=== PATIENT | male | born 1940 | race Caucasian/White ===

== ENCOUNTER → 2016-08-19 12:56 | Emergency (ER) | payer MEDICARE ==
[~2016-08-19 12:56] MED LIST: Amoxicillin/Clavulanate TAB* 875 MG PO ONE; Ibuprofen TAB* 400 MG PO ONE; NS 0.9% 1000 ML* 1,000 ML IV ONE
[2016-08-19 14:43] LABS: Hematocrit 43 % (42-52); Hemoglobin 14.1 g/dl (14.0-18.0); Mean Corpuscular HGB Conc 33 g/dl (31-36); Mean Corpuscular Hemoglobin 30 pg (27-31); Mean Corpuscular Volume 91 fL (80-94); Mean Platelet Volume 10 um3 (7.4-10.4); Red Blood Count 4.73 10^6/ul (4.0-5.4); Red Cell Distribution Width 14 % (10.5-15); White Blood Count 17.7 10^3/ul (3.5-10.8)
[2016-08-19 14:46] LABS: Add Diff/Slide Review? Slide Review Added; Comments Flag Yes
[2016-08-19 14:47] LABS: Urine Bilirubin Negative (Negative); Urine Glucose Negative (Negative); Urine Nitrite Negative (Negative)
[2016-08-19 15:04] LABS: Albumin 4.5 g/dL (3.2-5.2); Calcium 9.8 mg/dL (8.6-10.3); EGFR African American 40.9 (>60); EGFR Non-African American 31.8 (>60); Globulin 3.8 g/dL (2-4); Potassium 4.3 mmol/L (3.5-5.0); Total Bilirubin 0.6 mg/dL (0.2-1.0); Total Protein 8.3 g/dL (6.4-8.9)
--- NOTE | 2016-08-19 17:41 | RAD ---
INDICATION: Lower abdominal pain with worsening today. Worse with food and liquid intake. Previous hernia repair. COMPARISON: September 13, 2014 CT. TECHNIQUE: Multidetector CT images were obtained from the lung bases to the ischial tuberosities. Evaluation of the viscera is limited without IV contrast. Multiplanar reformation. REPORT: Minimal bibasilar dependent atelectasis. Decreased density of the liver consistent with hepatosteatosis with mild subcapsular and gallbladder fossa sparing. No focal hepatic lesions or biliary dilatation. Small stone visualized in the region of the gallbladder neck without additional CT abnormality of the gallbladder. No calcifications along the course of the nondilated common bile duct. Few low suspicion small pancreatic calcifications. Negative for significant pancreatic atrophy, focal pancreatic lesion, or peripancreatic inflammatory change. Unremarkable spleen. Negative for CT abnormality of the upper GI or small bowel. Unremarkable infra cecal appendix. Mild to moderate diverticulosis of the colon primarily involving the sigmoid colon without findings of diverticulitis. Negative for ascites or free air. Negative for significant hernias. Normal adrenal glands. Mildly atrophic kidneys. Negative for RIGHT nephrolithiasis or hydronephrosis. 1.8 cm simple cyst at the anterior midpole of the RIGHT kidney. Multiple well-circumscribed cortical lesions of the LEFT kidney with most consistent with simple cysts however there are 2 relative hyperdense exophytic lesions at the inferior pole. The more posterior one CM lesion demonstrates interval decrease in size compared with the prior exam consistent with benign etiology. The more lateral lesion measures 1.7 cm maximum dimension without change consistent with benign etiology. A few calyceal stones of the LEFT kidney are present including a 0.9 cm stone at the inferior pole calyx with interval increase in size. Negative for LEFT ureteral stone or hydronephrosis. Distended urinary bladder. Coarse calcification at the RIGHT para midline prostate. Symmetric seminal vesicles. Negative for lymphadenopathy. Atherosclerotic calcification of normal diameter abdominal aorta and iliac arteries. Partially decompressed IVC suggesting lower volume state. Unchanged small bone island at the RIGHT femoral head. Unchanged larger bone island at the RIGHT acetabular roof. Negative for suspicious focal osseous lesions. IMPRESSION: 1. Hepatosteatosis. 2. Cholelithiasis without additional CT abnormality of the gallbladder. 3. Mild to moderate colonic diverticulosis without findings of diverticulitis. Normal appendix documented. Negative for ascites, free air, or significant hernias. 4. LEFT nephrolithiasis increased over the prior exam. Negative for obstructive uropathy.
--- NOTE | 2016-08-19 18:55 | ED ---
Abdominal Pain/Male - HPI Summary HPI Summary: Patient presents with 1 day of abdominal pain that has become increasingly worse. He has not had pain like this before and denies known cause. The pain is worst in the LLQ but is mildly generalized. He denies fever, chills, N/V/D, constipation or back pain. No SOB, CP or urinary symptoms. - History of Current Complaint Chief Complaint: EDAbdPain Stated Complaint: ABD PAIN Time Seen by Provider: 08/19/16 17:37 Hx Obtained From: Patient, Family/Outlet Manager Onset/Duration: Gradual Onset Timing: Constant Severity Initially: Mild Severity Currently: Severe Pain Intensity: 8 Location: Discrete At: LLQ Radiates: No Character: Dull Aggravating Factor(s): Food Alleviating Factor(s): Nothing Associated Signs And Symptoms: Positive: Decreased Appetite - Allergies/Home Medications Allergies/Adverse Reactions: Allergies Allergy/AdvReac Type Severity Reaction Status Date / Time Cephalexin [From Keflex] Allergy Mild Rash Verified 10/25/14 13:47 IV contrast Allergy Mild Itching Uncoded 10/25/14 13:50 Home Medications: Home Medications Budesonide/Formote 80/4.5(NF) [Symbicort 80/4.5 (NF)] 1 puff INH BID 08/19/16 [ History Confirmed 08/19/16] PMH/Surg Hx/FS Hx/Imm Hx Endocrine/Hematology History: Denies: Hx Diabetes Cardiovascular History: Reports: Hx Coronary Artery Disease, Hx Hypercholesterolemia, Hx Hypertension Denies: Hx Myocardial Infarction Respiratory History: Denies: Hx Asthma - Surgical History Surgery Procedure, Year, and Place: double [id number]; both knees;back surgery- L5;amputated finger;left elbow; Infectious Disease History: No Infectious Disease History: Denies: Traveled Outside the [place] in Last 30 Days - Family History Known Family History: Positive: None - Social History Occupation: Retired Lives: With Family Alcohol Use: None Substance Use Type: Reports: None Smoking Status (MU): Former Smoker Type: Cigarettes Amount Used/How Often: 3/4 PKG/DAY Have You Smoked in the Last Year: No Review of Systems Negative: Fever, Chills Negative: Chest Pain Negative: Shortness Of Breath Positive: Abdominal Pain. Negative: Vomiting, Diarrhea, Nausea Positive: no symptoms reported All Other Systems Reviewed And Are Negative: Yes Physical Exam Triage Information Reviewed: Yes Vital Signs On Initial Exam: Initial Vitals Temp Pulse Resp BP 98 F 83 17 125/56 08/19/16 13:19 08/19/16 13:19 08/19/16 13:19 08/19/16 13:19 Vital Signs Reviewed: Yes Appearance: Positive: Well-Appearing, No Pain Distress, Well-Nourished Skin: Positive: Warm, Skin Color Reflects Adequate Perfusion, Dry, Soft Head/Face: Positive: Normal Head/Face Inspection Eyes: Positive: EOMI, USHA, Conjunctiva Clear ENT: Positive: Hearing grossly normal Neck: Positive: Supple, Nontender, No Lymphadenopathy Respiratory/Lung Sounds: Positive: Clear to Auscultation, Breath Sounds Present Cardiovascular: Positive: RRR Abdomen Description: Positive: Soft. Negative: Nontender - TTP greatest in LLQ with mild diffuse discomfort, CVA Tenderness (R), CVA Tenderness (L), Distended , Guarding Bowel Sounds: Positive: Present Musculoskeletal: Negative: Edema Left, Edema Right Neurological: Positive: Sensory/Motor Intact, Alert, Oriented to Person Place, Time, NV Bundle Intact Distally Psychiatric: Positive: Affect/Mood Appropriate AVPU Assessment: Alert - [place] Coma Scale Coma Scale Total: 15 Diagnostics - Vital Signs Vital Signs Temp Pulse Resp BP Pulse Ox 08/19/16 18:10 99.7 F 82 16 111/59 97 08/19/16 16:05 81 17 107/54 93 08/19/16 14:40 97.8 F 84 17 120/76 98 08/19/16 14:26 98.1 F 86 16 119/57 98 08/19/16 13:19 98 F 83 17 125/56 - Laboratory Lab Results: Lab Results 08/19/16 08/19/16 08/19/16 Range/Units 14:35 14:35 14:35 WBC 17.7 H (3.5-10.8) 10^3/ul RBC 4.73 (4.0-5.4) 10^6/ul Hgb 14.1 (14.0-18.0) g/dl Hct 43 (42-52) % MCV 91 (80-94) fL MCH 30 (27-31) pg MCHC 33 (31-36) g/dl RDW 14 (10.5-15) % Plt Count 234 (150-450) 10^3/ul MPV 10 (7.4-10.4) um3 Neut % (Auto) 84.6 H (38-83) % Lymph % (Auto) 7.8 L (25-47) % [place] % (Auto) 6.5 (1-9) % Eos % (Auto) 0.4 (0-6) % Baso % (Auto) 0.7 (0-2) % Absolute Neuts (auto) 15.0 H (1.5-7.7) 10^3/ul Absolute Lymphs (auto) 1.4 (1.0-4.8) 10^3/ul Absolute Monos (auto) 1.2 H (0-0.8) 10^3/ul Absolute Eos (auto) 0.1 (0-0.6) 10^3/ul Absolute Basos (auto) 0.1 (0-0.2) 10^3/ul Absolute Nucleated RBC 0.01 10^3/ul Nucleated RBC % 0 Sodium 136 (133-145) mmol/L Potassium 4.3 (3.5-5.0) mmol/L Chloride 108 (101-111) mmol/L Carbon Dioxide 19 L (22-32) mmol/L Anion Gap 9 (2-11) mmol/L BUN 53 H (6-24) mg/dL Creatinine 2.04 H (0.67-1.17) mg/dL Est GFR ( Amer) 40.9 (>60) Est GFR (Non-Af Amer) 31.8 (>60) BUN/Creatinine Ratio 26.0 H (8-20) Glucose 111 H (70-100) mg/dL Calcium 9.8 (8.6-10.3) mg/dL Total Bilirubin 0.60 (0.2-1.0) mg/dL AST 17 (13-39) U/L ALT 26 (7-52) U/L Alkaline Phosphatase 71 (34-104) U/L Total Protein 8.3 (6.4-8.9) g/dL Albumin 4.5 (3.2-5.2) g/dL Globulin 3.8 (2-4) g/dL Albumin/Globulin Ratio 1.2 (1-3) Urine Color Yellow Urine Appearance Cloudy Urine pH 5.0 (5-9) Ur Specific [place] 1.016 (1.010-1.030) Urine Protein Negative (Negative) Urine Ketones Negative (Negative) Urine Blood Negative (Negative) Urine Nitrate Negative (Negative) Urine Bilirubin Negative (Negative) Urine Urobilinogen Negative (Negative) Ur Leukocyte Esterase Negative (Negative) Urine Glucose Negative (Negative) Urine Ascorbic Acid * H (Negative) Result Diagrams: 08/19/16 14:35 08/19/16 14:35 Lab Statement: Any lab studies that have been ordered have been reviewed, and results considered in the medical decision making process. - CT No standard instances CT Interpretation: No Acute Changes CT Interpretation Completed By: Radiologist - diverticulosis Abdominal Pain Fem Course/Dx - Diagnoses Differential Diagnosis/HQI/PQRI: Abdominal Aortic Aneurysm, Appendicitis, Bowel Obstruction, Constipation, Diverticulitis, Hepatitis, Pancreatitis, Renal Colic , Ureteral Stone, Urinary Tract Infection Provider Diagnoses: Diverticulosis Discharge - Discharge Plan Condition: Stable Disposition: HOME Prescriptions: Amoxicillin/Clavulanate TAB* [Augmentin TAB 875*] 875 mg PO BID #13 tab Patient Education Materials: Diverticulosis (ED), Diverticulitis Diet (ED) Referrals: Dwight Ward MD [Primary Care Provider] - Additional Instructions: Please take the antibiotic prescribed until it is completely gone. Use Tylenol or ibuprofen for pain as needed. Drink extra fluids and rest. Follow-up with your primary care provider in two days for re-evaluation. Return to the emergency department if symptoms worsen.
[2016-08-19 19:20] VITALS: BP 122/69
== END | disposition home or self-care (01) ==
LOC: ED 12:56
DX: K57.90 Diverticulosis of intestine, part unspecified, without perforation or abscess without bleeding (principal); K80.20 Calculus of gallbladder without cholecystitis without obstruction; R10.32 Left lower quadrant pain; Z87.891 Personal history of nicotine dependence
CPT/HCPCS: 36415; 74176; 80053; 81003; 85025; 96360; 99283; A9270-GY

== ENCOUNTER 2017-02-22 07:46 | Day surgery (SDC) | payer MEDICARE ==
--- NOTE | 2017-02-09 07:40 | HP ---
CC: Dr. Dwight Miller * ADMITTING HISTORY AND PHYSICAL: DATE OF ADMISSION: 02/22/17 ADMITTING DIAGNOSIS: Left renal calculi. PLANNED PROCEDURE: Left stent insertion and shockwave lithotripsy of left renal calculi. HISTORY OF PRESENT ILLNESS: Matthias Cespedes is a 76-year-old gentleman who recently underwent renal sonography. This revealed a 1.2 cm mid pole left renal calculus in addition to a 1.4 cm left lower pole renal calculus. Plain x- ray was obtained and the calculi are fairly faint, but I could visualize them on the plain x-ray and he is now being brought in for left stent insertion and lithotripsy. PAST MEDICAL HISTORY: Significant for: 1. Diverticulosis. 2. Essential hypertension. 3. Hyperlipidemia. 4. Renal insufficiency. MEDICATIONS ON ADMISSION: 1. Lisinopril/hydrochlorothiazide 20/12.5 one tablet daily. 2. Plavix 75 mg daily. 3. Symbicort 2 puffs inhalation twice a day. 4. Rosuvastatin 10 mg daily. 5. Eyedrops. ALLERGIES AND INTOLERANCES: KEFLEX. SURGICAL HISTORY: 1. Significant for right hernia surgery. 2. Bilateral knee arthroscopy. 3. Right index finger amputation. 4. Back surgery in 1995. 5. Right eye surgery. PHYSICAL EXAMINATION GENERAL: Reveals a pleasant elderly gentleman. VITAL SIGNS: Blood pressure is 138/90, pulse 70 per minute, oxygen saturation 97% on room air. CARDIOVASCULAR EXAM: Regular rate and rhythm. S1, S2. LUNGS: Clear bilaterally. ABDOMEN: Soft with mild left flank tenderness. IMPRESSION: A 76-year-old gentleman with two left renal calculi, which are fairly large and faintly seen on an x-ray. He Is now being brought in for left stent insertion and shockwave lithotripsy of left renal calculi. [id number]/[facility] #: [id number] [facility]
[~2017-02-22 07:46] MED LIST changes: -Amoxicillin/Clavulanate TAB* 875 MG PO ONE; +Buffered Lidocaine 0.9% SYRIN* 5 ML/SYR SYRINGE INTRADERM ONE; +DiMENhydriNATE IV* 50 MG/ML VIAL IV PUSH PRN; +Famotidine IV* 10 MG/ML 2 ML (20 mg) IV ONE; -Ibuprofen TAB* 400 MG PO ONE; +Morphine INJ* 2 MG/ML 1 ML CARPUJECT IV PRN; -NS 0.9% 1000 ML* 1,000 ML IV ONE; +PROCHLORPERAZINE INJ 5 MG/ML 2 ML VIAL IV PRN; +Scopolamine 1.5 mg* PATCH TRANSDERM PRN; +fentaNYL* 50 MCG/ML 2 ML VIAL (100 MCG VIAL) IV PRN; +oxyCODONE/Acetamin 5/325 MG* TAB PO PRN
[2017-02-22] MEDS ORDERED: Buffered Lidocaine 0.9% SYRIN* 5 ML/SYR SYRINGE ONE (08:26)
[2017-02-22] MEDS ORDERED: Levofloxacin 500 MG IVPREMIX(* 500 MG/100 ML BAG IVPB ONE (08:26)
[2017-02-22] MEDS ORDERED: Famotidine IV* 10 MG/ML 2 ML (20 mg) ONE (08:26)
--- NOTE | 2017-02-22 08:35 | RAD ---
INDICATION: Shockwave lithotripsy. COMPARISON: Comparison is made with a prior CT of the abdomen and pelvis from August 19, 2016 and a prior KUB series from February 04, 2017. TECHNIQUE: Frontal supine films of the abdomen were obtained. FINDINGS: The small bowel and colon appear nondistended. There is a faint calcific densities which projects over the lower pole of the left kidney which appears to correlate with the calculi noted on the prior CT study. The largest measures approximately 1.2 cm in size. IMPRESSION: LEFT RENAL CALCULI.
[2017-02-22] MEDS ORDERED: KETAMINE HCL* 50 MG/ML 10 ML VIAL ONE (09:35)
[2017-02-22] MEDS ORDERED: fentaNYL* 50 MCG/ML 2 ML VIAL (100 MCG VIAL) ONE (09:35)
[2017-02-22] MEDS ORDERED: Midazolam* 1 MG/ML 10 ML VIAL (10 MG) ONE (09:35)
[2017-02-22] MEDS ORDERED: Iohexol 180 (CONTRAST) 10 ML SDV IV ONE (10:32)
[2017-02-22] MEDS ORDERED: Furosemide IV* 10 MG/ML 2 ML VIAL (20 MG) ONE (10:56)
[2017-02-22] MEDS ORDERED: Lidocaine 2% PF * 5 ML VIAL ONE (10:58)
[2017-02-22] MEDS ORDERED: Phenylephrine IV* 40 MCG/ML 10 ML SYRINGE ONE (10:59)
[2017-02-22] MEDS ORDERED: Dexamethasone IV* 4 MG/ML 1 ML (4 MG) ONE (10:59)
[2017-02-22] MEDS ORDERED: Propofol* 10 MG/ML 20 ML BTL IV PUSH ONE (10:59)
[2017-02-22] MEDS ORDERED: Ondansetron INJ* 2 MG/ML VIAL ONE (10:59)
[2017-02-22 13:01] VITALS: BP 140/84
[2017-02-22] MEDS ORDERED: oxyCODONE/Acetamin 5/325 MG* TAB ONE (13:39)
--- NOTE | 2017-02-23 04:12 | OP ---
CC: Dr. Dwight Miller * DATE OF OPERATION: 02/22/17 - [facility] DATE OF : 38 SURGEON: Kunal Jennings MD ANESTHESIOLOGIST: Dr. Mcdaniel. ANESTHESIA: General. PRE-OP DIAGNOSIS: Left renal calculi. POST-OP DIAGNOSIS: Left renal calculi. OPERATIVE PROCEDURE: Cystoscopy, left retrograde pyelogram, left stent insertion, shockwave lithotripsy of left renal calculi. INDICATIONS: Matthias Cespedes is a 76-year-old gentleman who was evaluated and noted to have two large calculi on a renal sonogram. He is now being brought in for treatment of the same. COMPLICATIONS: None. POSTOPERATIVE CONDITION: Stable. STENT USED: A 7-Surinamese stent left ureter. DESCRIPTION OF PROCEDURE: After induction of general anesthesia, the patient was placed in dorsal lithotomy position. Sequential compression devices were in place and functioning. Initial cystoscopy revealed a normal-appearing urethra, mildly enlarged prostate and a normal-appearing bladder. A guidewire was introduced into the left ureter. Retrograde pyelogram revealed filling defects consistent with the known location of the calculi. A 7-Surinamese stent was introduced and positioned under fluoroscopy with good proximal and distal positioning obtained. Next, attention was directed to shockwave lithotripsy of the left renal calculi. The calculi were faintly opaque and one was in the mid pole and one was in the lower pole. These were sequentially targeted with shockwave lithotripsy and after the initial 300 shocks, there was a pause in lithotripsy for several minutes in an effort to minimize any potential trauma to the kidney. Lithotripsy was then resumed and a total of 1800 shocks were distributed between the 2 calculi. The patient tolerated the procedure satisfactorily and was transferred back to the recovery area in stable condition. [id number]/[facility] #: [id number] [facility]
[2017-02-25] MEDS ORDERED: Scopolamine PATCH Remove* 1 NOTE MISC PATCH OFF ONE (06:01)
== END 2017-02-22 14:40 | disposition home or self-care (01) ==
LOC: OR 07:46
PROVIDERS: ATTEND Urology
DX: N20.0 Calculus of kidney (principal); N28.9 Disorder of kidney and ureter, unspecified; K57.90 Diverticulosis of intestine, part unspecified, without perforation or abscess without bleeding; I10 Essential (primary) hypertension; E78.5 Hyperlipidemia, unspecified; Z89.021 Acquired absence of right finger(s); Z79.01 Long term (current) use of anticoagulants
CPT/HCPCS: 74000; A9270-GY; C1876; J1100; J1940; J1956; J2250; J2405; J2704; J3010

== ENCOUNTER → 2018-08-29 06:15 | Day surgery (SDC) | payer MEDICARE ==
--- NOTE | 2018-08-25 18:13 | HP ---
CC: Dr. Miller; Dr. Denson; Dr. Kunal Jennings * ADMITTING HISTORY AND PHYSICAL: DATE OF ADMISSION: 08/29/18 ADMITTING DIAGNOSES: 1. Left renal calculus. 2. Left flank pain. PLANNED PROCEDURE: Shockwave lithotripsy, left renal calculus; possible left stent insertion. SURGEON: Dr. Jennings. HISTORY OF PRESENT ILLNESS: Matthias Cespedes is a 78-year-old gentleman with a longstanding history of recurrent renal calculi. He has been having periodic left flank pain and an ultrasound revealed approximately 1.2 cm calculus in the lower pole of the left kidney with interval increase in size. He had undergone lithotripsy about 1-1/2 years ago. PAST MEDICAL HISTORY: Significant for: 1. Sleep apnea. 2. COPD. 3. Hypertension. 4. Peripheral vascular disease. 5. Renal calculi. PAST SURGICAL HISTORY: Significant for back surgery, bilateral knee surgery, bilateral inguinal hernia repair, fem-pop revascularization in January of 2015 , and shockwave lithotripsy. MEDICATIONS ON ADMISSION: 1. Ellipta 62.5/25 mcg inhaler 1 puff every day. 2. Lisinopril/hydrochlorothiazide 20/12.5 one tablet daily. 3. Alphagan eye drops twice a day. 4. Aspirin 81 mg. 5. CPAP nightly. 6. Rosuvastatin 10 mg 3 times a week. ALLERGIES: KEFLEX. FAMILY HISTORY: Negative for stones. SOCIAL HISTORY: Smoking history: He is a former heavy smoker with a 50- to 60 - pack year smoking history, who quit in 2013. REVIEW OF SYSTEMS: He denies any chest pain or shortness of breath currently. PHYSICAL EXAMINATION GENERAL: Reveals a pleasant, elderly gentleman. VITAL SIGNS: Blood pressure is 132/74, pulse 80 per minute and regular, oxygen saturation 95% on room air. LUNGS: Clear bilaterally. CARDIOVASCULAR: Regular rate and rhythm. S1, S2. ABDOMEN: Soft with mild left flank tenderness. IMPRESSION: A 78-year-old gentleman with periodic left flank pain secondary to a left renal calculus with interval increase in size. PLAN: Planned procedure is shockwave lithotripsy of left renal calculus, possible left stent insertion. [id number]/[facility] #: [id number] [facility]
[~2018-08-29 06:15] MED LIST changes: -Buffered Lidocaine 0.9% SYRIN* 5 ML/SYR SYRINGE INTRADERM ONE; +Buffered Lidocaine 1% SYRIN* 1 ML/SYRINGE INTRADERM ONE; +Dexamethasone IV* 4 MG/ML 1 ML (4 MG) IV SLOW PU ONE; +Dexamethasone IV* 4 MG/ML 1 ML (4 MG) ONE; +Famotidine IV* 10 MG/ML 2 ML (20 mg) ONE; +Furosemide IV* 10 MG/ML 2 ML VIAL (20 MG) ONE; +Lactated Ringers 1000 ML Bag* 1,000 ML IV SCH; +Levofloxacin 500 MG IVPREMIX(* 500 MG/100 ML BAG IVPB ONE; +Lidocaine 2% PF * 5 ML VIAL ONE; -Morphine INJ* 2 MG/ML 1 ML CARPUJECT IV PRN; +Naloxone* 0.4 MG/ML 1 ML VIAL IV PRN; +Ondansetron INJ* 2 MG/ML VIAL ONE; -PROCHLORPERAZINE INJ 5 MG/ML 2 ML VIAL IV PRN; +Phenylephrine 40 MCG/ML SYRINGE ONE; +Propofol* 10 MG/ML 20 ML BTL ONE; -Scopolamine 1.5 mg* PATCH TRANSDERM PRN; -oxyCODONE/Acetamin 5/325 MG* TAB PO PRN
--- NOTE | 2018-08-29 11:06 | OP ---
CC: Dr. Dwight Miller; Dr. Denson * DATE OF OPERATION: 08/29/18 - [facility] DATE OF : 38 SURGEON: Kunal Jennings MD ANESTHESIOLOGIST: Dr. Hendrickson. ANESTHESIA: General. PRE-OP DIAGNOSIS: Left renal calculus. POST-OP DIAGNOSIS: Left renal calculus. OPERATIVE PROCEDURE: Shockwave lithotripsy of left renal calculus. COMPLICATIONS: None. POSTOPERATIVE CONDITION: Stable. INDICATIONS: Matthias Cespedes is a 78-year-old gentleman with a history of recurrent renal calculi. He was recently seen and noted to have an approximately 10 to 12 mm calculus in the left kidney. DESCRIPTION OF PROCEDURE: After induction of general anesthesia, the patient was placed on the lithotripsy table in supine position. The calculus, which was in the lower pole of the left kidney was localized using fluoroscopy and shockwave lithotripsy was commenced at a rate of 60 shocks per minute. After the initial 300 shocks, there was a pause in lithotripsy for several minutes in an effort to minimize any potential trauma to the kidney. Lithotripsy was then resumed and periodic imaging revealed adequate localization and fragmentation. A total of 2000 shocks were administered. The patient tolerated the procedure satisfactorily and was transferred back to the recovery area in stable condition. [id number]/[facility] #: [id number] [facility]TDD
[2018-08-29 11:16] VITALS: BP 149/81
== END | disposition home or self-care (01) ==
LOC: OR 06:15
PROVIDERS: ATTEND Urology
DX: N20.0 Calculus of kidney (principal); J44.9 Chronic obstructive pulmonary disease, unspecified; G47.33 Obstructive sleep apnea (adult) (pediatric); I10 Essential (primary) hypertension; I73.9 Peripheral vascular disease, unspecified; Z87.442 Personal history of urinary calculi; Z68.30 Body mass index [BMI] 30.0-30.9, adult; K21.9 Gastro-esophageal reflux disease without esophagitis; Z86.718 Personal history of other venous thrombosis and embolism
CPT/HCPCS: 74018; J1100; J1940; J1956; J2405; J2704

== ENCOUNTER 2022-02-20 21:14 | Inpatient (IN) ==
[2022-02-20 22:02] LABS: ABS Basophils 0.1 10^3/ul (0-0.2); ABS Eosinophils 0.1 10^3/ul (0-0.6); ABS Lymphocytes 1.7 10^3/ul (1.0-4.8); ABS Monocytes 0.9 10^3/ul (0-0.8); ABS Neutrophils 7.6 10^3/ul (1.5-7.7); Eosinophil % 1.3 %; Hematocrit 38 % (42-52); Hemoglobin 12.9 g/dL (14.0-18.0); Mean Corpuscular HGB Conc 34 g/dL (31-36); Mean Corpuscular Hemoglobin 30 pg (27-31); Mean Corpuscular Volume 88 fL (80-94); Mean Platelet Volume 9.7 fL (7.4-10.4); Platelet Count 224 10^3/uL (150-450); Red Blood Count 4.36 10^6 /uL (4.18-5.48); Red Cell Distribution Width 14 % (10-15); White Blood Count 10.4 10^3/uL (3.5-10.8)
[2022-02-20 22:16] LABS: Albumin/Globulin Ratio 1.5 (1-3); Calcium 8.5 mg/dL (8.6-10.3); Globulin 2.7 g/dL (2-4); Potassium 4.3 mmol/L (3.5-5.0); Total Bilirubin 0.3 mg/dL (0.2-1.0); Total Protein 6.7 g/dL (6.4-8.9); eGFR CKD-EPI 33.7 (>60)
[2022-02-20 22:52] LABS: ABS Basophils 0.1 10^3/ul (0-0.2); ABS Eosinophils 0.1 10^3/ul (0-0.6); ABS Lymphocytes 1.6 10^3/ul (1.0-4.8); ABS Monocytes 0.8 10^3/ul (0-0.8); ABS Neutrophils 7.9 10^3/ul (1.5-7.7); Eosinophil % 1.2 %; Hematocrit 37 % (42-52); Hemoglobin 12.6 g/dL (14.0-18.0); Lymphocyte % 15.3 %; Mean Corpuscular HGB Conc 34 g/dL (31-36); Mean Corpuscular Hemoglobin 30 pg (27-31); Mean Corpuscular Volume 87 fL (80-94); Mean Platelet Volume 8.9 fL (7.4-10.4); Platelet Count 225 10^3/uL (150-450); Red Blood Count 4.25 10^6 /uL (4.18-5.48); Red Cell Distribution Width 14 % (10-15); White Blood Count 10.6 10^3/uL (3.5-10.8)
[2022-02-20] MEDS ORDERED: Heparin 5000 UNITS/ML 1 mL VIAL IV SCH (23:00)
[2022-02-21] MEDS: Heparin DRIP 25,000 UNITS BAG 25,000 UNITS/500 ML BAG IV SCH ×2 (00:10→22:41)
[2022-02-21] MEDS: Heparin 5000 UNITS/ML 1 mL VIAL IV SCH ×2 (00:10→06:45)
[2022-02-21] MEDS ORDERED: Albuterol HFA INHALER 8 gm MDI INH PRN (01:20)
[2022-02-21 06:20] LABS: ABS Basophils 0.1 10^3/ul (0-0.2); ABS Eosinophils 0.2 10^3/ul (0-0.6); ABS Lymphocytes 2.1 10^3/ul (1.0-4.8); ABS Monocytes 0.6 10^3/ul (0-0.8); ABS Neutrophils 5.4 10^3/ul (1.5-7.7); Eosinophil % 2.1 %; Hematocrit 37 % (42-52); Hemoglobin 12.8 g/dL (14.0-18.0); Lymphocyte % 25.4 %; Mean Corpuscular HGB Conc 35 g/dL (31-36); Mean Corpuscular Hemoglobin 30 pg (27-31); Mean Corpuscular Volume 87 fL (80-94); Mean Platelet Volume 9.2 fL (7.4-10.4); Platelet Count 212 10^3/uL (150-450); Red Blood Count 4.21 10^6 /uL (4.18-5.48); Red Cell Distribution Width 14 % (10-15); White Blood Count 8.3 10^3/uL (3.5-10.8)
[2022-02-21 06:56] LABS: Magnesium 1.9 mg/dL (1.9-2.7)
[2022-02-21 09:07] LABS: Calcium 8.3 mg/dL (8.6-10.3); Potassium 4.2 mmol/L (3.5-5.0); eGFR CKD-EPI 41.2 (>60)
[2022-02-21 10:56] LABS: High Sensitivity Troponin 1 Hr 865 pg/mL (<20)
[2022-02-21] MEDS: NF: Multivitamins/Mins AREDS2 (NF) CAP PO SCH ×2 (11:03→20:28)
[2022-02-21] MEDS: [UNRECOGNIZED DRUG - OTHER] PO SCH (11:03)
[2022-02-21] MEDS: Tiotropium Brom/Olodaterol MDI INH SCH (11:19)
[2022-02-21] MEDS: Brimonidine P 0.1%(NF) 1 DROP BTL RIGHT EYE SCH ×2 (12:13→20:10)
[2022-02-21 16:18] LABS: Vitamin D Total 25(OH) 22.5 ng/mL (20-50)
[2022-02-21] MEDS: Latanoprost 0.005% 2.5 ml BTL BOTH EYES SCH (20:13)
[2022-02-22 07:00] LABS: ABS Basophils 0.1 10^3/ul (0-0.2); ABS Eosinophils 0.3 10^3/ul (0-0.6); ABS Lymphocytes 2.3 10^3/ul (1.0-4.8); ABS Monocytes 0.8 10^3/ul (0-0.8); ABS Neutrophils 6.2 10^3/ul (1.5-7.7); Eosinophil % 2.7 %; Hematocrit 35 % (42-52); Hemoglobin 12.3 g/dL (14.0-18.0); Mean Corpuscular HGB Conc 35 g/dL (31-36); Mean Corpuscular Hemoglobin 31 pg (27-31); Mean Corpuscular Volume 87 fL (80-94); Mean Platelet Volume 9.9 fL (7.4-10.4); Platelet Count 203 10^3/uL (150-450); Red Blood Count 4.03 10^6 /uL (4.18-5.48); Red Cell Distribution Width 14 % (10-15); White Blood Count 9.6 10^3/uL (3.5-10.8)
[2022-02-22] MEDS: Tiotropium Brom/Olodaterol MDI INH SCH (07:20)
[2022-02-22 07:37] LABS: Calcium 8.2 mg/dL (8.6-10.3); HDL Cholesterol 44.1 mg/dL; Potassium 4.3 mmol/L (3.5-5.0); eGFR CKD-EPI 41.5 (>60)
[2022-02-22] MEDS: Brimonidine P 0.1%(NF) 1 DROP BTL RIGHT EYE SCH ×2 (07:54→20:52)
[2022-02-22] MEDS: [UNRECOGNIZED DRUG - OTHER] PO SCH (07:56)
[2022-02-22] MEDS: NF: Multivitamins/Mins AREDS2 (NF) CAP PO SCH ×2 (07:56→20:53)
[2022-02-22] MEDS: Heparin DRIP 25,000 UNITS BAG 25,000 UNITS/500 ML BAG IV SCH (18:58)
[2022-02-22] MEDS: Latanoprost 0.005% 2.5 ml BTL BOTH EYES SCH (20:52)
[2022-02-22] MEDS ORDERED: Lactated Ringers 1000 ml BAG 1,000 ML IV SCH (22:00)
[2022-02-22] MEDS ORDERED: NS 0.9% 1000 ml BAG 1,000 ML IV SCH (22:00)
[2022-02-23 07:16] LABS: ABS Monocytes 0.1 10^3/ul (0-0.8); ABS Neutrophils 10.7 10^3/ul (1.5-7.7); Hematocrit 38 % (42-52); Hemoglobin 12.8 g/dL (14.0-18.0); Lymphocyte % 8.8 %; Mean Corpuscular HGB Conc 34 g/dL (31-36); Mean Corpuscular Hemoglobin 30 pg (27-31); Mean Corpuscular Volume 87 fL (80-94); Mean Platelet Volume 9.5 fL (7.4-10.4); Platelet Count 234 10^3/uL (150-450); Red Blood Count 4.32 10^6 /uL (4.18-5.48); Red Cell Distribution Width 14 % (10-15); White Blood Count 11.9 10^3/uL (3.5-10.8)
[2022-02-23] MEDS: Tiotropium Brom/Olodaterol MDI INH SCH (07:22)
[2022-02-23] MEDS ORDERED: nitroGLYCERIN DRIP 25,000 MCG/250 ML BTL ONE (07:44)
[2022-02-23] MEDS ORDERED: Heparin 2 UNITS/ML 1000 mls 2,000 ML IV ONE (07:44)
[2022-02-23] MEDS ORDERED: Heparin 1,000 UNIT/ML 10 ml (10,000 UNITS) CATHLAB/DIALYSIS ONE ×2 (07:44→09:13)
[2022-02-23] MEDS ORDERED: Iohexol 350 (CONTRAST) 100 ML PAK IV ONE (07:44)
[2022-02-23] MEDS ORDERED: Midazolam 5 mg/5 ml VIAL 1 mg/ml 5 ml VIAL (5 mg) ONE (07:44)
[2022-02-23] MEDS ORDERED: VERAPAMIL 2.5 MG/ML 2 ML VIAL ** 5 mg/2 ml ONE (07:44)
[2022-02-23] MEDS ORDERED: fentaNYL 100 mcg/2 ml 50 MCG/ML VIAL ONE (07:44)
[2022-02-23] MEDS ORDERED: Lidocaine 1% MPF 5 ML VIAL ONE (07:44)
[2022-02-23] MEDS ORDERED: Iodixanol 320 (CONTRAST) 100 ML SDV ONE ×3 (08:08→09:20)
[2022-02-23] MEDS ORDERED: niCARdipine 0.1MG/ML IVPREMIX 20 MG/200 ML BAG IV ONE (08:41)
[2022-02-23] MEDS ORDERED: Heparin 2 UNITS/ML 1000 mls 1,000 ML IV ONE (08:57)
[2022-02-23] MEDS ORDERED: Ondansetron 4 mg VIAL 2 MG/ML 2 ml VIAL IV PRN (09:37)
[2022-02-23] MEDS: [UNRECOGNIZED DRUG - OTHER] PO SCH (10:53)
[2022-02-23] MEDS: Brimonidine P 0.1%(NF) 1 DROP BTL RIGHT EYE SCH ×3 (11:06→21:53)
[2022-02-23] MEDS: NF: Multivitamins/Mins AREDS2 (NF) CAP PO SCH ×2 (11:06→21:53)
[2022-02-23] MEDS ORDERED: Enoxaparin 40 MG/0.4 ML SYR SUBCUT SCH (13:00)
[2022-02-23] MEDS: Enoxaparin 40 MG/0.4 ML SYR SUBCUT SCH (16:37)
[2022-02-23] MEDS: Latanoprost 0.005% 2.5 ml BTL BOTH EYES SCH (21:53)
[2022-02-24 05:02] LABS: ABS Basophils 0.1 10^3/ul (0-0.2); ABS Lymphocytes 1.9 10^3/ul (1.0-4.8); ABS Monocytes 1.3 10^3/ul (0-0.8); Eosinophil % 0.3 %; Hematocrit 33 % (42-52); Hemoglobin 11.3 g/dL (14.0-18.0); Lymphocyte % 13.5 %; Mean Corpuscular HGB Conc 34 g/dL (31-36); Mean Corpuscular Hemoglobin 30 pg (27-31); Mean Corpuscular Volume 87 fL (80-94); Mean Platelet Volume 9.2 fL (7.4-10.4); Platelet Count 221 10^3/uL (150-450); Red Blood Count 3.81 10^6 /uL (4.18-5.48); Red Cell Distribution Width 14 % (10-15); White Blood Count 14.3 10^3/uL (3.5-10.8)
[2022-02-24 05:27] LABS: Albumin 3.5 g/dL (3.2-5.2); Albumin/Globulin Ratio 1.5 (1-3); Calcium 7.9 mg/dL (8.6-10.3); Globulin 2.3 g/dL (2-4); Potassium 4.2 mmol/L (3.5-5.0); Total Bilirubin 0.4 mg/dL (0.2-1.0); Total Protein 5.8 g/dL (6.4-8.9); eGFR CKD-EPI 36.4 (>60)
[2022-02-24] MEDS: NF: Multivitamins/Mins AREDS2 (NF) CAP PO SCH (08:09)
[2022-02-24] MEDS: [UNRECOGNIZED DRUG - OTHER] PO SCH (08:09)
[2022-02-24] MEDS: Brimonidine P 0.1%(NF) 1 DROP BTL RIGHT EYE SCH ×2 (08:09→20:04)
[2022-02-24] MEDS: Tiotropium Brom/Olodaterol MDI INH SCH (08:10)
[2022-02-24] MEDS: Enoxaparin 40 MG/0.4 ML SYR SUBCUT SCH (16:05)
[2022-02-24] MEDS: Multivitamins/Minerals TAB PO SCH (20:04)
[2022-02-24] MEDS: Latanoprost 0.005% 2.5 ml BTL BOTH EYES SCH (20:04)
[2022-02-25 05:29] LABS: ABS Basophils 0.1 10^3/ul (0-0.2); ABS Eosinophils 0.3 10^3/ul (0-0.6); ABS Lymphocytes 1.8 10^3/ul (1.0-4.8); ABS Neutrophils 6.7 10^3/ul (1.5-7.7); Hematocrit 35 % (42-52); Hemoglobin 11.9 g/dL (14.0-18.0); Lymphocyte % 17.9 %; Mean Corpuscular HGB Conc 34 g/dL (31-36); Mean Corpuscular Hemoglobin 30 pg (27-31); Mean Corpuscular Volume 87 fL (80-94); Mean Platelet Volume 9.1 fL (7.4-10.4); Nucleated Red Blood Cells % 0.1; Platelet Count 211 10^3/uL (150-450); Red Blood Count 4.04 10^6 /uL (4.18-5.48); Red Cell Distribution Width 14 % (10-15); White Blood Count 9.9 10^3/uL (3.5-10.8)
[2022-02-25 06:12] LABS: Calcium 8.2 mg/dL (8.6-10.3); Magnesium 2.1 mg/dL (1.9-2.7); Potassium 4.9 mmol/L (3.5-5.0); eGFR CKD-EPI 33.7 (>60)
[2022-02-25] MEDS: Tiotropium Brom/Olodaterol MDI INH SCH (07:12)
[2022-02-25] MEDS: Multivitamins/Minerals TAB PO SCH (09:11)
[2022-02-25] MEDS: Brimonidine P 0.1%(NF) 1 DROP BTL RIGHT EYE SCH (09:12)
[2022-02-25 13:05] VITALS: BP 131/62
== END 2022-02-25 14:25 | disposition home or self-care (01) | DRG 251 ==
LOC: ED 21:14 → SUATTDRO 23:14 → EDHOLD 23:14 → MEDTELE 02-21 09:14 → ICU 02-23 09:52
PROVIDERS: ADMIT Internal Medicine; ATTEND Internal Medicine Critical Care Medicine

== ENCOUNTER 2022-10-21 13:19 | Observation (INO) ==
[2022-10-21 14:13] LABS: Urine Appearance Cloudy; Urine Bilirubin Negative (Negative); Urine Blood Negative (Negative); Urine Color Yellow; Urine Glucose Negative (Negative); Urine Ketones Negative (Negative); Urine Nitrite Negative (Negative); Urine Protein 1+(30 mg/dL) (Negative); Urine Specific Gravity 1.013 (1.002-1.030); Urine Urobilinogen Negative (Negative)
[2022-10-21 14:18] LABS: Urine Bacteria 1+ (Absent); Urine Red Blood Cell 1+(3-5/hpf) (Absent); Urine White Blood Cell 3+(>20/hpf) (Absent)
[2022-10-21] MEDS ORDERED: NS 0.9% 1000 ml BAG 1,000 ML IV ONE ×2 (14:23→18:18)
[2022-10-21] MEDS ORDERED: Ciprofloxacin 400mg IVPREMIX 400 MG/200 ML BAG IVPB ONE (14:24)
[2022-10-21 15:43] LABS: Hematocrit 34.9 % (38-53); Hemoglobin 11.7 g/dL (13.2-16.3); Mean Corpuscular Hemoglobin 29.4 pg (27-33); Mean Corpuscular Hgb Conc 33.6 g/dL (31-36); Mean Corpuscular Volume 87.6 fL (80-97); Mean Platelet Volume 9.1 fL (7.5-11.2); Platelet Count 243 10^3/uL (150-450); Red Blood Count 3.98 10^6/uL (4.06-5.63); Red Cell Distribution Width 14.5 % (12-17); White Blood Count 23.1 10^3/uL (3.6-10.2)
[2022-10-21] MEDS ORDERED: Piperacillin/Tazobac 3.375 BAG 3.375 GM/100 ML BAG IV ONE (15:50)
[2022-10-21 15:54] LABS: Albumin 4.2 g/dL (3.2-5.2); CO2 Carbon Dioxide 21 mmol/L (22-32); Calcium 8.5 mg/dL (8.6-10.3); Chloride 103 mmol/L (101-111); Sodium 134 mmol/L (135-145)
[2022-10-21 16:00] LABS: ALT 7 U/L (7-52); Albumin/Globulin Ratio 1.2 (1-3); Alkaline Phosphatase 54 U/L (35-149); Blood Urea Nitrogen 28 mg/dL (6-24); Globulin 3.4 g/dL (2-4); Glucose 97 mg/dL (70-100); Total Protein 7.6 g/dL (6.4-8.9); eGFR CKD-EPI 36.9 (>60)
[2022-10-21 16:03] LABS: Anion Gap 10 mmol/L (2-16)
[2022-10-21 16:07] LABS: ABS Basophils 0.1 10^3/uL (0.0-0.1); ABS Eosinophils 0.1 10^3/uL (0.0-0.5); ABS Lymphocytes 1.7 10^3/uL (1.0-4.8); ABS Monocytes 1.6 10^3/uL (0.0-1.1); ABS Neutrophils 19.6 10^3/uL (1.5-7.6); ABS Nucleated RBC 0.01 10^3/ul; Eosinophil % 0.4 %; Lymphocyte % 7.2 %; Nucleated Red Blood Cells % 0.1 /100 WBC (0.0-0.4)
[2022-10-21 17:59] LABS: Potassium Redraw 3.2 mmol/L (3.5-5.0)
[2022-10-21] MEDS ORDERED: Albuterol HFA INHALER 8 gm MDI INH PRN (18:20)
[2022-10-21] MEDS ORDERED: Potassium Chlor 20 meq TAB.ER PO ONE (18:20)
[2022-10-21] MEDS: Latanoprost 0.005% 2.5 ml BTL BOTH EYES SCH (20:38)
[2022-10-21] MEDS: CMCS: Brimonidine P 0.1%(NF) 1 DROP BTL RIGHT EYE SCH (20:38)
[2022-10-21] MEDS: Aspirin EC 81 mg TAB.EC (enteric coated) PO SCH (20:59)
[2022-10-22 06:18] LABS: Hematocrit 32.9 % (38-53); Hemoglobin 11.1 g/dL (13.2-16.3); Mean Corpuscular Hemoglobin 29.3 pg (27-33); Mean Corpuscular Hgb Conc 33.8 g/dL (31-36); Mean Corpuscular Volume 86.7 fL (80-97); Mean Platelet Volume 9.1 fL (7.5-11.2); Platelet Count 228 10^3/uL (150-450); Red Cell Distribution Width 14.1 % (12-17); White Blood Count 17.9 10^3/uL (3.6-10.2)
[2022-10-22 06:34] LABS: Calcium 8.4 mg/dL (8.6-10.3); Creatinine, Serum 1.66 mg/dL (0.67-1.17); Magnesium 1.8 mg/dL (1.9-2.7); eGFR CKD-EPI 40.7 (>60)
[2022-10-22] MEDS: CMCS: Brimonidine P 0.1%(NF) 1 DROP BTL RIGHT EYE SCH ×2 (07:34→21:19)
[2022-10-22] MEDS: Tiotropium Brom/Olodaterol MDI (ACUTE) INH SCH (07:55)
[2022-10-22] MEDS: cefTRIAXone 1 gm/50 mL D5W 1 GM/50 ML BAG IV SCH (08:25)
[2022-10-22] MEDS: Ampicillin ADVAN 1 GM in NS 0.9% 50 ML 50 ML IVPB SCH ×2 (14:27→21:19)
[2022-10-22] MEDS: Latanoprost 0.005% 2.5 ml BTL BOTH EYES SCH (21:19)
[2022-10-22] MEDS: Aspirin EC 81 mg TAB.EC (enteric coated) PO SCH (21:19)
[2022-10-23] MEDS: Ampicillin ADVAN 1 GM in NS 0.9% 50 ML 50 ML IVPB SCH ×4 (01:48→20:53)
[2022-10-23] MEDS: Tiotropium Brom/Olodaterol MDI (ACUTE) INH SCH (07:24)
[2022-10-23 08:22] LABS: ABS Basophils 0.1 10^3/uL (0.0-0.1); ABS Eosinophils 0.3 10^3/uL (0.0-0.5); ABS Lymphocytes 1.5 10^3/uL (1.0-4.8); ABS Neutrophils 12.5 10^3/uL (1.5-7.6); ABS Nucleated RBC 0.01 10^3/ul; Eosinophil % 1.7 %; Hematocrit 32.6 % (38-53); Hemoglobin 11.3 g/dL (13.2-16.3); Lymphocyte % 9.6 %; Mean Corpuscular Hemoglobin 29.7 pg (27-33); Mean Corpuscular Hgb Conc 34.5 g/dL (31-36); Mean Corpuscular Volume 86.1 fL (80-97); Mean Platelet Volume 8.7 fL (7.5-11.2); Platelet Count 233 10^3/uL (150-450); Red Blood Count 3.79 10^6/uL (4.06-5.63); Red Cell Distribution Width 14.4 % (12-17); White Blood Count 15.3 10^3/uL (3.6-10.2)
[2022-10-23 08:54] LABS: Calcium 8.7 mg/dL (8.6-10.3); Creatinine, Serum 1.67 mg/dL (0.67-1.17); Magnesium 1.8 mg/dL (1.9-2.7); Potassium 4.1 mmol/L (3.5-5.0); eGFR CKD-EPI 40.4 (>60)
[2022-10-23] MEDS: CMCS: Brimonidine P 0.1%(NF) 1 DROP BTL RIGHT EYE SCH ×2 (10:09→20:51)
[2022-10-23] MEDS: cefTRIAXone 1 gm/50 mL D5W 1 GM/50 ML BAG IV SCH (11:38)
[2022-10-23] MEDS: Latanoprost 0.005% 2.5 ml BTL BOTH EYES SCH (20:51)
[2022-10-23] MEDS: Aspirin EC 81 mg TAB.EC (enteric coated) PO SCH (20:52)
[2022-10-24] MEDS: Ampicillin ADVAN 1 GM in NS 0.9% 50 ML 50 ML IVPB SCH ×2 (02:11→08:09)
[2022-10-24] MEDS: CMCS: Brimonidine P 0.1%(NF) 1 DROP BTL RIGHT EYE SCH (08:13)
[2022-10-24] MEDS: Tiotropium Brom/Olodaterol MDI (ACUTE) INH SCH (08:58)
[2022-10-24 10:31] VITALS: BP 127/80
== END 2022-10-24 12:55 | disposition home or self-care (01) ==
LOC: ED 13:19 → EDHOLD 13:19 → SUATTDRO 18:09 → MED 20:48
PROVIDERS: ADMIT Internal Medicine; ATTEND Internal Medicine